=== PATIENT | female | born 1930 | race Caucasian/White ===

== ENCOUNTER 2019-04-07 17:34 | Emergency (ER) | payer OTHER, BC ==
[~2019-04-07] VITALS: Ht 152.4 cm; Wt 81.6 kg
[2019-04-07 17:39] VITALS: Ht 152.4 cm; Wt 81.6 kg
[2019-04-07 20:00] VITALS: BP 162/61
== END 2019-04-07 20:00 | disposition home or self-care (01) ==
LOC: EDBD 17:34 → ED 17:34
DX: S42.302A Unspecified fracture of shaft of humerus, left arm, initial encounter for closed fracture (principal); S09.8XXA Other specified injuries of head, initial encounter; E03.9 Hypothyroidism, unspecified; Z88.0 Allergy status to penicillin; W18.09XA Striking against other object with subsequent fall, initial encounter; Y93.89 Activity, other specified; Y92.89 Other specified places as the place of occurrence of the external cause; Y99.8 Other external cause status
CPT/HCPCS: Q0092